=== PATIENT | male | born 1985 | race Caucasian/White ===

== ENCOUNTER 2018-03-12 14:44 | Emergency (ER) | payer OTHER, SELFPAY ==
[2018-03-12 14:52] VITALS: BP 103/74; PULSE 85; RESP 18; TEMP 36.6; O2SAT 98
--- NOTE | 2018-03-12 15:15 | DI.RAD_ITS ---
SYMPTOMS/DIAGNOSIS: CRUSH INJURY LEFT ANKLE: A heel spur is seen. There is no evidence of fracture or ankle mortise widening. The talar dome appears intact. IMPRESSION: Negative left ankle. LEFT FOOT: A heel spur is seen. An ossicle is noted posterior to the talus. No fracture or dislocation is seen. IMPRESSION: Heel spur. No acute abnormality.
--- NOTE | 2018-03-12 15:22 | W.ED.GENAD ---
Discharge Plan Disposition Patient Disposition: HOME Condition: Fair Discharge Details Chief Complaint: Orthopedic Clinical Impression: Crush injury, ankle Primary Care Provider: Steve Paris ED Provider: Susan Collazo Home Meds and New Rx's Prescriptions: New ibuprofen 600 mg tablet 600 mg PO QID PRN (Reason: pain) Qty: 20 RF: 0 Discharge Instructions Instructions: Ankle Sprain (ED), Crush Injury (ED) Additional Instructions: Encourage rest, ice, elevation. Tylenol and/or ibuprofen as needed for discomfort. Please continue with a walking boot for pain persist. Plan to stay in a walking boot for the next week until reevaluated by occupational health. I have asked her critical care transport nurse to help her establish occupational health follow-up, you may call tomorrow to make appointment. Please monitor wound for signs of infection including redness, warmth, drainage, fever/chills, increased pain, discharge. If these arise please seek care urgently once again. Avoid activities that increase your discomfort. If you develop new or worsening symptoms he care urgently once again Occupational health: [phone] Stand Alone Forms: Work Release Referrals: Steve Paris [Primary Care Provider] - Discharge Data Discharge Date/Time-TO BE ENTERED AT DEPARTURE: 03/12/18 16:37 Medical Decision Making Patient is a 32-year-old male presenting today with chief complaint of left ankle and foot pain. He reports a prior to arrival, he was working with an electric pallet lyndsay when his foot and ankle got pinned between the pallet lyndsay and palate with 2 ton load on it. He denies other injury at the time of the incident. Suffered a small abrasion to the medial aspect. Pain is primarily over the lateral aspect of the ankle. Patient immediately noted swelling. Immediately noted swelling to the ankle. Denies any altered sensation. Has not been able to move the ankle secondary to discomfort. Is not had anything as of yet for his discomfort. Will obtain imaging. I am concerned for possible fracture. He is exquisitely point tender over the lateral malleolus and has not been able to bear weight. Patient be given Tylenol and ibuprofen help with discomfort. He is currently icing and elevating. Patient is not up-to-date on tetanus and does have an open wound, we will update this today. X-ray patient's foot and ankle was reviewed by radiologist. No acute abnormality noted Tetanus updated by nursing staff. Discussed findings with the patient. Advised that this is consistent with crush injury. Encourage rest, ice, elevation. Given the swelling and level of discomfort patient will be placed in a boot to help immobilize the area of discomfort. Discussed the signs symptoms of infection when to seek care urgently once again for his abrasion. Advised to follow-up with occupational health in 1 week for reevaluation. I advised gentle activity. Patient attempted ambulation with boot, was unable to tolerate this. Will give crutches and have him be NWB until evaluated by [facility]. Patient continued to have discomfort with boot in place, given crutches. Patient will contact occupational health for follow-up. Was given a note for work. Advised to elevate as much possible. We discussed new/worsening symptoms when to seek care urgently once again. We discussed the signs and symptoms of infection of his superficial abrasion. All of his questions and concerns were addressed and he is in agreement with this plan. HPI General Mode of arrival: ambulatory. Date/Time Provider Initiated Documentation: 03/12/18 15:03. Limitations to Documentation: no limitations. Information obtained by: patient. History of Present Illness 32 year old M presents to the emergency department with the chief complaint of left ankle pain, described as moderate, with intensity rated at 5. Quality is described as aching, and is localized to the left and lower extremity. Patient reports no radiation. Patient started experiencing this hour(s) and it has been constant. Immobilization improves symptom(s), Movement worsens symptoms . Patient notes rash (notes superficial abrasion to the lateral aspect of his foot); denies fever/chills. Patient did receive the following treatments prior to arrival, none Related Data Home Medications Medication Instructions Recorded Confirmed ibuprofen 600 mg PO QID PRN #20 tab 03/12/18 Previous Rx's Medication Instructions Recorded ibuprofen 600 mg PO QID PRN #20 tab 03/12/18 Allergies Allergy/AdvReac Type Severity Reaction Status Date / Time No Known Allergies Allergy Unverified 03/12/18 14:56 General Stated Complaint: Orthopedic LOW: 4 Review of Systems Constitutional Reports as per HPI, Denies chills, Denies fever(s) and Denies frequent falls Musculoskeletal Reports as per HPI, Reports abnormal gait (unable to weight bear, patient is hopping on one foot ), Denies numbness and Denies tingling Integumentary/Breasts Reports as per HPI Neurologic Reports abnormal gait (unable to weight bear, patient is hopping on one foot ), Denies frequent falls, Denies numbness and Denies tingling [facility] Social History Smoking/Tobacco Use Status: Current every day Exam Const General: cooperative, healthy appearing, comfortable, no acute distress, well developed and well groomed Nutritional Appearance: average body habitus and well nourished Orientation: alert and awake Resp Effort & Inspection: normal respiratory effort, able to speak in complete sentences and no pursed lip breathing Cardio Rate: regular rate Rhythm: regular rhythm Skin Trauma: abrasion (to lateral aspect of left foot. Superficial, approximately 1cm in diameter. Surrounding tissue is ecchymotic, swollen and pink) Neuro General: alert, awake and oriented x3 Cognition: normal cognition Speech: speech normal Gait: antalgic (unable to bear weight on LLE) Motor: muscle tone normal throughout Sensory Exam: no sensory deficits noted Extrem Left lower extremity: normal capillary refill and ankle Details: tenderness Location: of the lateral malleolus and of the medial malleolus, swelling Details: diffusely and laterally (Maximal over the lateral malleolus), abnormal ROM Details: pain with active ROM and pain with passive ROM, abrasion (Over the medial aspect of the dorsum of the) and ecchymosis (Surrounding area of); no warmth, no crepitus, no penetrating wound and achilles tendon exam normal; abnormal to inspection (Patient has notable swelling along the lateral aspect of the ankle. Abrasion to the medial aspect of the foot. Limited range of motion. 2+ distal pulses. Sensation is intact. No pain over the proximal fibula.), abnormal ROM and joint enlargement noted Psych Appearance: grossly normal and well kempt Mental Status: mental status grossly normal Speech and Movement: speech and movement normal Course Vital Signs Temperature 36.6 C 03/12/18 14:52 Pulse 85 03/12/18 14:52 Respiratory Rate 18 03/12/18 14:52 Blood Pressure 103/74 03/12/18 14:52 Pulse Oximetry 98 03/12/18 14:52 Temperature 36.6 C 03/12/18 14:52 Temperature Source Skin 03/12/18 14:52 Pulse 85 03/12/18 14:52 Respiratory Rate 18 03/12/18 14:52 Respiratory Effort 03/12/18 14:54 Blood Pressure 103/74 03/12/18 14:52 Blood Pressure Position Sitting 03/12/18 14:52 Pulse Oximetry 98 03/12/18 14:52 Oxygen Delivery Method Room Air 03/12/18 14:52 Oxygen Flow Rate 0 03/12/18 14:52 Pain Level 5 03/12/18 14:52
--- NOTE | 2018-03-12 15:26 | ED.GENADUL_ITS ---
Discharge Plan Disposition Patient Disposition: HOME Condition: Fair Discharge Details Chief Complaint: Orthopedic Clinical Impression: Crush injury, ankle Primary Care Provider: Steve Paris ED Provider: Susan Collazo Home Meds and New Rx's Prescriptions: New ibuprofen 600 mg tablet 600 mg PO QID PRN (Reason: pain) Qty: 20 RF: 0 Discharge Instructions Instructions: Ankle Sprain (ED), Crush Injury (ED) Additional Instructions: Encourage rest, ice, elevation. Tylenol and/or ibuprofen as needed for discomfort. Please continue with a walking boot for pain persist. Plan to stay in a walking boot for the next week until reevaluated by occupational health. I have asked her healthcare administrator to help her establish occupational health follow-up, you may call tomorrow to make appointment. Please monitor wound for signs of infection including redness, warmth, drainage, fever/chills, increased pain, discharge. If these arise please seek care urgently once again. Avoid activities that increase your discomfort. If you develop new or worsening symptoms he care urgently once again Occupational health: [phone] Stand Alone Forms: Work Release Referrals: Steve Paris [Primary Care Provider] - Discharge Data Discharge Date/Time-TO BE ENTERED AT DEPARTURE: 03/12/18 16:37 Medical Decision Making Patient is a 32-year-old male presenting today with chief complaint of left ankle and foot pain. He reports a prior to arrival, he was working with an electric pallet lyndsay when his foot and ankle got pinned between the pallet lyndsay and palate with 2 ton load on it. He denies other injury at the time of the incident. Suffered a small abrasion to the medial aspect. Pain is primarily over the lateral aspect of the ankle. Patient immediately noted swelling. Immediately noted swelling to the ankle. Denies any altered sensation. Has not been able to move the ankle secondary to discomfort. Is not had anything as of yet for his discomfort. Will obtain imaging. I am concerned for possible fracture. He is exquisitely point tender over the lateral malleolus and has not been able to bear weight. Patient be given Tylenol and ibuprofen help with discomfort. He is currently icing and elevating. Patient is not up- to-date on tetanus and does have an open wound, we will update this today. X-ray patient's foot and ankle was reviewed by radiologist. No acute abnormality noted Tetanus updated by nursing staff. Discussed findings with the patient. Advised that this is consistent with crush injury. Encourage rest, ice, elevation. Given the swelling and level of discomfort patient will be placed in a boot to help immobilize the area of discomfort. Discussed the signs symptoms of infection when to seek care urgently once again for his abrasion. Advised to follow-up with occupational health in 1 week for reevaluation. I advised gentle activity. Patient attempted ambulation with boot, was unable to tolerate this. Will give crutches and have him be NWB until evaluated by [facility]. Patient continued to have discomfort with boot in place, given crutches. Patient will contact occupational health for follow-up. Was given a note for work. Advised to elevate as much possible. We discussed new/worsening symptoms when to seek care urgently once again. We discussed the signs and symptoms of infection of his superficial abrasion. All of his questions and concerns were addressed and he is in agreement with this plan. HPI General Mode of arrival: ambulatory . Date/Time Provider Initiated Documentation: 03/12/18 15:03 . Limitations to Documentation: no limitations . Information obtained by: patient . History of Present Illness 32 year old M presents to the emergency department with the chief complaint of left ankle pain, described as moderate, with intensity rated at 5. Quality is described as aching, and is localized to the left and lower extremity. Patient reports no radiation. Patient started experiencing this hour(s) and it has been constant. Immobilization improves symptom(s), Movement worsens symptoms . Patient notes rash (notes superficial abrasion to the lateral aspect of his foot); denies fever/chills. Patient did receive the following treatments prior to arrival, none Related Data Home Medications Medication Instructions Recorded Confirmed ibuprofen 600 mg PO QID PRN #20 tab 03/12/18 Previous Rx's Medication Instructions Recorded ibuprofen 600 mg PO QID PRN #20 tab 03/12/18 Allergies Allergy/AdvReac Type Severity Reaction Status Date / Time No Known Allergies Allergy Unverified 03/12/18 14:56 General Stated Complaint: Orthopedic LOW: 4 Review of Systems Constitutional Reports as per HPI, Denies chills, Denies fever(s) and Denies frequent falls Musculoskeletal Reports as per HPI, Reports abnormal gait (unable to weight bear, patient is hopping on one foot ), Denies numbness and Denies tingling Integumentary/Breasts Reports as per HPI Neurologic Reports abnormal gait (unable to weight bear, patient is hopping on one foot ), Denies frequent falls, Denies numbness and Denies tingling [facility] Social History Smoking/Tobacco Use Status: Current every day Exam Const General: cooperative, healthy appearing, comfortable, no acute distress, well developed and well groomed Nutritional Appearance: average body habitus and well nourished Orientation: alert and awake Resp Effort & Inspection: normal respiratory effort, able to speak in complete sentences and no pursed lip breathing Cardio Rate: regular rate Rhythm: regular rhythm Skin Trauma: abrasion (to lateral aspect of left foot. Superficial, approximately 1cm in diameter. Surrounding tissue is ecchymotic, swollen and pink) Neuro General: alert, awake and oriented x3 Cognition: normal cognition Speech: speech normal Gait: antalgic (unable to bear weight on LLE) Motor: muscle tone normal throughout Sensory Exam: no sensory deficits noted Extrem Left lower extremity: normal capillary refill and ankle Details: tenderness Location: of the lateral malleolus and of the medial malleolus, swelling Details : diffusely and laterally (Maximal over the lateral malleolus), abnormal ROM Details: pain with active ROM and pain with passive ROM, abrasion (Over the medial aspect of the dorsum of the) and ecchymosis (Surrounding area of); no warmth, no crepitus, no penetrating wound and achilles tendon exam normal; abnormal to inspection (Patient has notable swelling along the lateral aspect of the ankle. Abrasion to the medial aspect of the foot. Limited range of motion. 2+ distal pulses. Sensation is intact. No pain over the proximal fibula.), abnormal ROM and joint enlargement noted Psych Appearance: grossly normal and well kempt Mental Status: mental status grossly normal Speech and Movement: speech and movement normal Course Vital Signs Temperature 36.6 C 03/12/18 14:52 Pulse 85 03/12/18 14:52 Respiratory Rate 18 03/12/18 14:52 Blood Pressure 103/74 03/12/18 14:52 Pulse Oximetry 98 03/12/18 14:52 Temperature 36.6 C 03/12/18 14:52 Temperature Source Skin 03/12/18 14:52 Pulse 85 03/12/18 14:52 Respiratory Rate 18 03/12/18 14:52 Respiratory Effort 03/12/18 14:54 Blood Pressure 103/74 03/12/18 14:52 Blood Pressure Position Sitting 03/12/18 14:52 Pulse Oximetry 98 03/12/18 14:52 Oxygen Delivery Method Room Air 03/12/18 14:52 Oxygen Flow Rate 0 03/12/18 14:52 Pain Level 5 03/12/18 14:52
[2018-03-12] MEDS: Acetaminophen 500 MG TAB 1000 MG PO (15:39)
[2018-03-12] MEDS: Ibuprofen 600 MG TAB PO (15:40)
--- NOTE | 2018-03-13 11:20 | PDOC.ERCMPRO ---
Care Management Progress Note 03/13-Susan GOMEZ requested assistance with an [employer] appt in one week for a crush injury to left ankle. Patient works for [employer] in [facility]. Called [employer] and left detailed message about above. [employer] called back and stated they have left a voice mail for Ignacio to call them to schedule appt.
--- NOTE | 2018-03-13 11:24 | CMPROGNOTE_ITS ---
Care Management Progress Note 03/13-Susan GOMEZ requested assistance with an [employer] appt in one week for a crush injury to left ankle. Patient works for [employer] in [facility]. Called [employer] and left detailed message about above. [employer] called back and stated they have left a voice mail for Ignacio to call them to schedule appt.
== END 2018-03-12 16:37 | disposition home or self-care (01) ==
PROVIDERS: Emergency Provider Physician Assistant; PCP Nurse Practitioner Family
DX: S97.02XA Crushing injury of left ankle, initial encounter (principal); S90.512A Abrasion, left ankle, initial encounter; W23.0XXA Caught, crushed, jammed, or pinched between moving objects, initial encounter; Y99.0 Civilian activity done for income or pay; W31.89XA Contact with other specified machinery, initial encounter
CPT/HCPCS: 90471; 99284; 73610; 73630; E0114; L4361